=== PATIENT | male | born 1985 | race Two or more races ===

== ENCOUNTER 2022-05-05 14:58 | Emergency (ER) | payer MEDICAID ==
[~2022-05-05] VITALS: Ht 193 cm; Wt 106.6 kg
--- NOTE | 2022-05-05 15:18 | NUR ---
COVID SWAB COLLECTED, URINE COLLECTED AND SENT TO LAB.
[2022-05-05 17:41] LABS: BASOPHILS % (AUTO) 0.3 % (0.0-2.0); EOSINOPHILS % (AUTO) 0.5 % (0.0-6.0); HEMATOCRIT 41 % (39-51); HEMOGLOBIN 13.2 g/dL (13.5-17.5); LYMPHOCYTES # (AUTO) 1.4 K/uL (0.8-4.8); LYMPHOCYTES % (AUTO) 19.8 % (20.0-44.0); MEAN CORPUSCULAR HGB CONC 33 g/dl (31.0-36.0); MEAN CORPUSCULAR VOLUME 89 fL (80-96); MONOCYTES # (AUTO) 0.6 K/uL (0.1-1.30); MONOCYTES % (AUTO) 9.4 % (2.0-12.0); NEUTROPHILS # (AUTO) 4.8 K/uL (1.8-8.9); PLATELET COUNT (AUTO) 278 K/uL (150-450); RED BLOOD CELL COUNT(AUTO) 4.58 MIL/uL (4.5-6.0); WHITE BLOOD COUNT (AUTO) 6.9 K/uL (4.3-11.0)
[2022-05-05 17:55] LABS: ALANINE AMINOTRANSFERASE 50 U/L (12-78); ALBUMIN 3.9 g/dL (3.4-5.0); ALCOHOL, BLOOD < 3 mg/dL (0-0); ALKALINE PHOSPHATASE 54 U/L (46-116); ASPARTATE AMINOTRANSFERASE 56 U/L (15-37); BILIRUBIN,DIRECT 0.2 mg/dL (0.0-0.2); BILIRUBIN,TOTAL 1.1 mg/dL (0.2-1.0); CALCIUM, SERUM 9.3 mg/dL (8.5-10.1); CARBON DIOXIDE 31 mmol/L (21-32); CHLORIDE 102 mmol/L (98-107); CREATININE 1.2 mg/dL (0.6-1.3); GLUCOSE 81 mg/dL (74-106); POTASSIUM 4.3 mmol/L (3.5-5.1); SODIUM SERUM 137 mmol/L (136-145); TOTAL PROTEIN, SERUM 7.5 g/dL (6.4-8.2); UREA NITROGEN, BLOOD 18 mg/dL (7-18)
[2022-05-05 18:01] LABS: ACETAMINOPHEN 0 ug/ml (10-30)
[2022-05-05 20:00] VITALS: BP 119/70
--- NOTE | 2022-05-05 20:06 | NUR ---
URINE COLLECTED AND SENT TO LAB
[2022-05-05 20:38] LABS: BILIRUBIN,URINE NEGATIVE (NEGATIVE); COLOR,URINE YELLOW (YELLOW); LEUKOCYTE ESTERASE ,URINE NEGATIVE (NEGATIVE); NITRITE, URINE NEGATIVE (NEGATIVE); PROTEIN,URINE 1+ mg/dl (NEGATIVE); UGLUCOSE NEGATIVE (NEGATIVE); UROBILINOGEN,URINE 0.2 EU/dL (0.2)
--- NOTE | 2022-05-05 20:58 | NUR ---
FACESHEET AND CLINICALS FAXED TO [facility].
[2022-05-05 21:27] LABS: BACTERIA,URINE None seen /HPF (None Seen); RBC,URINE 0-2 /HPF (0-2); SQUAMOUS EPITHELIAL CELL,UR None Seen /HPF (None Seen); WBC,URINE 0-2 /HPF (0-3)
[2022-05-05 21:28] LABS: URINE AMORPHOUS PHOSPHATES Moderate /HPF (None Seen)
--- NOTE | 2022-05-05 22:13 | NUR ---
ACCEPTED AT [facility] UNDER DR GONZALES NUMBER FOR REPORT: [phone]
--- NOTE | 2022-05-05 22:15 | NUR ---
[facility] ETA 3 MINS
--- NOTE | 2022-05-05 22:19 | NUR ---
REPORT GIVEN TO AVERY FA
== END 2022-05-05 22:30 ==
LOC: ER 15:06
DX: Z02.89 Encounter for other administrative examinations (principal); R45.851 Suicidal ideations; Z20.822 Contact with and (suspected) exposure to COVID-19; F20.0 Paranoid schizophrenia; Z59.00 Homelessness unspecified
CPT/HCPCS: 99285; 85025; 80048; 80076; 81001; 36415; 87426; 80143; 80320; 80307; C9803; G0480

== ENCOUNTER 2022-06-23 01:59 | Emergency (ER) | payer MEDICAID, OTHER ==
[~2022-06-23] VITALS: Ht 195.6 cm; Wt 113.4 kg
--- NOTE | 2022-06-23 02:34 | NUR ---
[facility]OG[facility] MAKER AT PT'S BEDSIDE
--- NOTE | 2022-06-23 02:34 | NUR ---
URINE AND COVID ANTIGEN SWAB COLLECTED AND SENT TO LAB
--- NOTE | 2022-06-23 02:36 | NUR ---
BIBS TO ER BED 18. AAOX4. NOT IN RESP DISTRESS. AMBULATORY. CAME IN FOR MEDICAL CLEARANCE FOR VOLUNTARY PSYCH ADMISSION FOR FEELING SUICIDAL WITH PLAN TO SWALLOW ALOT OF METH. DENIES HI. PT WAS GOWNED, BELONGINGS TO LOCKER, WANDED AND SITTER WITHIN SIGHT. WAS A THE BEDSIDE FOR EVAL. ORDERS RECEIVED, NOTED AND CARRIED OUT.
[2022-06-23 02:58] LABS: BASOPHILS % (AUTO) 0.1 % (0.0-2.0); EOSINOPHILS % (AUTO) 0.3 % (0.0-6.0); HEMATOCRIT 39 % (39-51); HEMOGLOBIN 12.9 g/dL (13.5-17.5); LYMPHOCYTES # (AUTO) 1.6 K/uL (0.8-4.8); LYMPHOCYTES % (AUTO) 17.8 % (20.0-44.0); MEAN CORPUSCULAR HGB CONC 33 g/dl (31.0-36.0); MEAN CORPUSCULAR VOLUME 87 fL (80-96); MONOCYTES # (AUTO) 0.9 K/uL (0.1-1.30); MONOCYTES % (AUTO) 10.3 % (2.0-12.0); NEUTROPHILS # (AUTO) 6.2 K/uL (1.8-8.9); NEUTROPHILS % (AUTO) 71.5 % (43.0-81.0); PLATELET COUNT (AUTO) 267 K/uL (150-450); RED BLOOD CELL COUNT(AUTO) 4.45 MIL/uL (4.5-6.0); WHITE BLOOD COUNT (AUTO) 8.7 K/uL (4.3-11.0)
[2022-06-23 03:07] LABS: BILIRUBIN,URINE NEGATIVE (NEGATIVE); COLOR,URINE YELLOW (YELLOW); LEUKOCYTE ESTERASE ,URINE NEGATIVE (NEGATIVE); NITRITE, URINE NEGATIVE (NEGATIVE); PH,URINE 5.5 (5.0-8.0); PROTEIN,URINE NEGATIVE (NEGATIVE); UGLUCOSE NEGATIVE (NEGATIVE); UROBILINOGEN,URINE 0.2 EU/dL (0.2)
[2022-06-23 03:13] LABS: CARBON DIOXIDE 29 mmol/L (21-32); CHLORIDE 94 mmol/L (98-107); CREATININE 1.1 mg/dL (0.6-1.3); GLUCOSE 95 mg/dL (74-106); POTASSIUM 3.2 mmol/L (3.5-5.1); SODIUM SERUM 133 mmol/L (136-145); UREA NITROGEN, BLOOD 14 mg/dL (7-18)
[2022-06-23 03:16] LABS: RBC,URINE 0-2 /HPF (0-2); WBC,URINE 0-2 /HPF (0-3)
[2022-06-23 03:17] LABS: ALANINE AMINOTRANSFERASE 204 U/L (12-78); ALBUMIN 3.7 g/dL (3.4-5.0); ALCOHOL, BLOOD < 3 mg/dL (0-0); ALKALINE PHOSPHATASE 56 U/L (46-116); ASPARTATE AMINOTRANSFERASE 273 U/L (15-37); BILIRUBIN,DIRECT 0.3 mg/dL (0.0-0.2); BILIRUBIN,TOTAL 1.3 mg/dL (0.2-1.0); TOTAL PROTEIN, SERUM 7.4 g/dL (6.4-8.2)
[2022-06-23 03:17] LABS: BACTERIA,URINE Rare /HPF (None Seen); SQUAMOUS EPITHELIAL CELL,UR Few /HPF (None Seen)
[2022-06-23 03:19] LABS: ACETAMINOPHEN 0 ug/ml (10-30)
--- NOTE | 2022-06-23 04:38 | NUR ---
pt accepted at [facility] under the care of dr. fulton. call [phone] for report. pt going to unit 1
--- NOTE | 2022-06-23 05:04 | NUR ---
[facility] CALLED FOR BLS GOING [facility] ETA @[phone]
--- NOTE | 2022-06-23 05:09 | NUR ---
REPORT GIVEN TO SHILPA VARELA [place] [facility] [place] [facility]
--- NOTE | 2022-06-23 07:03 | NUR ---
[facility] P[facility] PT UP AFTER 8
--- NOTE | 2022-06-23 09:28 | NUR ---
PATIENT WAS NOVELTY CHAIN MAKER BY [facility] AND IN STABLE CONDITION .
[2022-06-23 09:30] VITALS: BP 141/84
== END 2022-06-23 09:30 ==
LOC: ER 02:02
DX: R45.851 Suicidal ideations (principal); Z59.00 Homelessness unspecified; Z20.822 Contact with and (suspected) exposure to COVID-19; F20.0 Paranoid schizophrenia
CPT/HCPCS: 99285; 85025; 80048; 80076; 81001; 36415; 87426; 80143; 80320; 80307; C9803; G0480

== ENCOUNTER 2025-05-27 13:24 | Emergency (ER) | payer MEDICAID, OTHER ==
[~2025-05-27] VITALS: Ht 193 cm; Wt 121.1 kg
[2025-05-27] MEDS: IV NS 0.9% 1,000 ML BAG IV ONE (13:59)
[2025-05-27 14:01] VITALS: TEMP 98.1
[2025-05-27 14:10] LABS: PLATELET COUNT (AUTO) 218 K/uL (150-450); RED BLOOD CELL COUNT(AUTO) 5.47 MIL/uL (4.5-6.0); RED CELL DISTRIBUTION WIDTH 15.2 % (11.5-15.0); WHITE BLOOD COUNT (AUTO) 9.3 K/uL (4.3-11.0)
[2025-05-27 14:18] LABS: CALCIUM, SERUM 7.8 mg/dL (8.5-10.1); CREATININE 1.1 mg/dL (0.6-1.3); SODIUM SERUM 140 mmol/L (136-145); UREA NITROGEN, BLOOD 14 mg/dL (7-18)
[2025-05-27 15:30] VITALS: BP 133/80; O2SAT 97
== END 2025-05-27 15:30 | disposition home or self-care (01) ==
LOC: ER 13:42
DX: R55 Syncope and collapse (principal); F20.0 Paranoid schizophrenia; F17.200 Nicotine dependence, unspecified, uncomplicated; Z59.00 Homelessness unspecified
CPT/HCPCS: 99285; 96360; 71045; 93005; 85025; 80048; 36415; 84484; 82962; J7030